=== PATIENT | female | born 1940 | race American Indian/Alaskan Native ===

== ENCOUNTER 2018-01-03 11:38 | Observation (INO) | payer MEDICARE ==
[2018-01-03 12:00] VITALS: BMI 42.9
--- NOTE | 2018-01-03 14:06 | C.PDOC ---
History Of Present Illness 77 y/o female presents to the ED with complaints of bilateral leg pain, ongoing for 11 months, but progressively worsening. Patient has had multiple prior evaluations, including doppler ultrasound on 11/15/17 of the bilateral lower extremities that showed a (+) popliteal DVT on the left, negative on right. States she has been compliant with Xarelto for the past 1 month. Patient states pain has always been equal bilaterally, but is now worsening at the right knee/calf. She also reports intermittent leg asymmetry/swelling, but none at present. Pain is described as "burning" and worsens at night. Otherwise patient denies any chest pain, SOB, ROBBINS, numbness, tingling, or other complaints. She reports she was referred to a vascular specialist who ordered another study, not yet completed due to insurance issues. Additionally, patient is complaining of recurrent boils to the bilateral inner thighs. No new redness, increased swel ling/warmth, or drainage from the area. Time Seen by Provider: 01/03/18 12:58 Chief Complaint (Nursing): Lower Extremity Problem/Injury History Per: Patient History/Exam Limitations: no limitations Onset/Duration Of Symptoms: Days Current Symptoms Are (Timing): Worse Past Medical History Reviewed: Historical Data, Nursing Documentation, Vital Signs Vital Signs: Last Vital Signs Temp 98.3 F 01/03/18 12:00 Pulse 87 01/03/18 12:00 Resp 18 01/03/18 12:00 BP 152/78 H 01/03/18 12:00 Pulse Ox 96 01/03/18 12:00 - Medical History PMH: Arthritis, CAD, COPD, CVA, Diabetes, Diverticulitis (client said had small hole in intestine), Deep Vein Thrombosis (Popliteal left DVT 11/15/17), HTN, Pneumonia, Sleep Apnea Denies: Chronic Kidney Disease Surgical History: Coronary Stent (RCA) - [facility] Procedures EXCIS KNEE SEMILUN CARTL (07/02/02) KNEE SYNOVECTOMY (07/02/02) NAIL REMOVAL (09/26/14) NON-INVASIVE MECHANICAL VENTILATION (10/20/14) PARTIAL OSTECTOMY NEC (09/26/14) Family History: States: Unknown Family Hx - Social History Hx Tobacco Use: No Hx Alcohol Use: No Hx Substance Use: No - Immunization History Hx Tetanus Toxoid Vaccination: No Hx Influenza Vaccination: No Hx Pneumococcal Vaccination: No Review Of Systems Except As Marked, All Systems Reviewed And Found Negative. Constitutional: Negative for: Fever, Chills, Sweats Cardiovascular: Negative for: Chest Pain, Palpitations Respiratory: Negative for: Cough, Shortness of Breath Musculoskeletal: Positive for: Leg Pain (bilateral leg pain, right > left) Skin: Negative for: Rash, Lesions Neurological: Negative for: Weakness, Numbness, Incoordination, Other (tingling) Physical Exam - Physical Exam Appears: Non-toxic, No Acute Distress Skin: Warm, Dry, Other (chronic hyperpigmentation to the bilateral inner thighs, no focal fluctuance, no tenderness or increased warmth/swelling) Head: Atraumatic, Normacephalic Eye(s): bilateral: Normal Inspection, PERRL, EOMI Chest: Symmetrical Cardiovascular: Rhythm Regular, No Murmur Respiratory: Normal Breath Sounds, No Accessory Muscle Use, Other (NARD) Gastrointestinal/Abdominal: Soft, No Tenderness, No Distention Extremity: Bilateral: Atraumatic, Normal Color And Temperature (with no edema, erythema, or cyanosis), Normal ROM, Other (No focal tenderness) Pulses: Left Dorsalis Pedis: Normal, Right Dorsalis Pedis: Normal Neurological/Psych: Oriented x3, Normal Speech ED Course And Treatment O2 Sat by Pulse Oximetry: 96 (RA) Pulse Ox Interpretation: Normal Progress - Re-Evaluation Re-evaluation Note: 01/03/18 15:[address] Rylan Maria, awaiting call back. 01/03/18 15:54 PT NOW REQUESTING ADMISSION FOR DIFF WALKING. PS LIVES W STAIRS, UNABLE TO CLIMB STAIRS W CANE. CONCERN FOR FALLING. ON ANTICOAG FOR DVT. REQUESTING ADMISSION FOR NH, POSSIBLE REHAB PLACEMENT 01/03/18 16:01 D/W PMD AGREES W ADMISSION. WILL FU LABS - Data Reviewed Data Reviewed: Lab, Diagnostic imaging, Old records Medical Decision Making Medical Decision Making: Impression: 77 year old with lower extremity pain Plan: --Tramadol 50 mg PO --Vascular study, right lower extremity --Reassess and disposition Ultrasound is negative for DVT, discussed with patient. Disposition Counseled Patient/Family Regarding: Studies Performed, Diagnosis - Disposition Disposition: HOSPITALIZED Disposition Time: 16:05 Condition: STABLE Forms: [email or web address] (Nigerian) - POA Present On Arrival: Falls Or Trauma, Deep Vein Thrombosis / PE - Clinical Impression Clinical Impression: Coagulopathy, Restless leg syndrome, Chronic pain, Difficulty walking - Scribe Statement The provider has reviewed the documentation as recorded by the Scribe (Alva Corona) Provider Attestation: All medical record entries made by the Scribe were at my direction and personally dictated by me. I have reviewed the chart and agree that the record accurately reflects my personal performance of the history, physical exam, medical decision making, and the department course for this patient. I have also personally directed, reviewed, and agree with the discharge instructions and disposition. Decision To Admit - Pt Status Changed To: Hospital Disposition Of: Observation - . Bed Request Type: Regular Admitting Physician: Rylan Maria Patient Diagnosis: Coagulopathy, Restless leg syndrome, Chronic pain, Difficulty walking
--- NOTE | 2018-01-03 16:01 | VASCLAB ---
Date of service: 01/03/2018 PROCEDURE: Right Lower Extremity Venous Duplex Exam. HISTORY: Leg pain PRIORS: None. TECHNIQUE: Right common femoral, femoral, popliteal and posterior tibial, peroneal and great saphenous veins were evaluated. Flow was assessed with color Doppler, compressibility, assessment of phasic flow and augmentation response. Report prepared by JAN Talley, RVT FINDINGS: RIGHT: 1. Common Femoral Vein: 1.1. Compressibility - Fully compressible: Thrombus - None: Flow - Phasic: Augmentation -Normal: Reflux - None. 2. Femoral Vein: 2.1. Compressibility - Fully compressible: Thrombus - None: Flow - Phasic: Augmentation -Normal: Reflux - None. 3. Popliteal Vein: 3.1. Compressibility - Fully compressible: Thrombus - None: Flow - Phasic: Augmentation -Normal: Reflux - None. 4. Posterior Tibial Vein: 4.1. Compressibility - Fully compressible: Thrombus - None: Flow - Phasic: Augmentation -Normal: Reflux - None. 5. Peroneal Vein: 5.1. Compressibility - Fully compressible: Thrombus - None: Flow - Phasic: Augmentation -Normal: Reflux - None. 6. Great Saphenous Vein: 6.1. Compressibility - Fully compressible: Thrombus -None: Flow - Phasic: Augmentation - Normal: Reflux - None. OTHER FINDINGS: IMPRESSION: No evidence of deep or superficial vein thrombosis of the right lower extremity with excellent venous flow. Normal valve function noted of the right side. Normal venous flow noted in the left common femoral vein.
--- NOTE | 2018-01-03 16:51 | CT ---
Date of service: 01/03/2018 PROCEDURE: CT HEAD WITHOUT CONTRAST. HISTORY: DIFFICULTY WALKING COMPARISON: 07/22/2013 TECHNIQUE: Axial computed tomography images were obtained through the head/brain without intravenous contrast. Radiation dose: Total exam DLP = 986.71 mGy-cm. This CT exam was performed using one or more of the following dose reduction techniques: Automated exposure control, adjustment of the mA and/or kV according to patient size, and/or use of iterative reconstruction technique. FINDINGS: HEMORRHAGE: No intracranial hemorrhage. BRAIN: No mass effect or edema. No significant atrophy. Mild chronic periventricular white matter ischemic change. Small old left basal ganglia lacunar infarct, unchanged. No evidence of acute infarct. VENTRICLES: Unremarkable. No hydrocephalus. CALVARIUM: Unremarkable. PARANASAL SINUSES: Chronic right maxillary sinusitis. MASTOID AIR CELLS: Unremarkable as visualized. No inflammatory changes. OTHER FINDINGS: None. IMPRESSION: No intracranial mass, hemorrhage or evidence of acute infarct. Old left basal ganglia lacunar infarct. Mild chronic periventricular white matter ischemic change. Chronic right maxillary sinusitis.
--- NOTE | 2018-01-03 16:59 | RAD ---
Date of service: 01/03/2018 HISTORY: MED CLEAR COMPARISON: 04/24/2016 TECHNIQUE: Chest PA and lateral FINDINGS: LUNGS: No active pulmonary disease. PLEURA: No significant pleural effusion identified. No pneumothorax apparent. CARDIOVASCULAR: Cardiomegaly. No radiographic findings to suggest acute or significant cardiovascular disease. OSSEOUS STRUCTURES: No significant abnormalities. VISUALIZED UPPER ABDOMEN: Normal. OTHER FINDINGS: Stable elevation left hemidiaphragm. IMPRESSION: No active disease. No significant interval change compared to the prior examination(s).
[2018-01-03 17:03] LABS: BASO # 0.1 K/uL (0.0-0.2); BASO % 1.3 % (0.0-2.0); EOS # 0.2 K/uL (0.0-0.7); EOS % 2.4 % (0.0-4.0); HEMOGLOBIN 10.7 g/dL (11.0-16.0); LYMPH # 2.6 K/uL (1.0-4.3); LYMPH % 38.1 % (20.0-40.0); MEAN CELL VOLUME 89.9 fL (81.0-99.0); MEAN CORPUSCULAR HEMOGLOBIN 29.7 pg (27.0-31.0); MEAN PLATELET VOLUME 9.7 fL (7.2-11.7); MONO # 0.6 K/uL (0.0-0.8); MONO % 8.6 % (0.0-10.0); NEUT # 3.4 K/uL (1.8-7.0); NEUT % 49.6 % (50.0-75.0); NRBC % 0.1 % (0.0-2.0); RBC 3.59 Mil/uL (3.80-5.20); RED CELL DISTRIBUTION WIDTH 13.6 % (11.5-14.5); WHITE BLOOD COUNT 6.9 K/uL (4.8-10.8)
[2018-01-03 17:22] LABS: BLOOD UREA NITROGEN 14 mg/dL (7-17); CALCIUM 9.1 mg/dl (8.6-10.4); GFR NON-AFRICAN AMERICAN > 60
[2018-01-03 19:48] VITALS: RESP 20
[2018-01-04] MEDS ORDERED: Insulin Detemir 100 units/ml Vial (Levemir) SC SCH ×2 (10:00→22:00)
--- NOTE | 2018-01-04 10:42 | RAD ---
Date of service: 01/04/2018 PROCEDURE: Bilateral Knee Radiographs. HISTORY: knee pain COMPARISON: None. FINDINGS: BONES: Right Knee: No fracture appreciated Left Knee: No fracture appreciated JOINTS: Right Knee: Tricompartmental osteoarthrosis Left knee: Tricompartmental osteoarthrosis SOFT TISSUES: Right Knee: Large body habitus Left Knee: Large body habitus JOINT EFFUSION: Right Knee: None. Left Knee: None. OTHER FINDINGS: Subcortical cystic changes bilaterally in each knee joint. 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 No fracture or dislocation. Other findings as above.
[2018-01-04] MEDS ORDERED: Triamcinolone Acetonide 40 mg/mL Inj IAA ONE ×2 (11:47→12:00)
[2018-01-04] MEDS ORDERED: Bupivacaine 0.25% Inj(30mL) IJ ONE ×2 (12:00)
[2018-01-04] MEDS: (Novolog) Insulin Aspart, Recombinant 100 u/ml 10 ml vial SC SCH ×2 (16:27→21:54)
[2018-01-04] MEDS ORDERED: (Novolog) Insulin Aspart, Recombinant 100 u/ml 10 ml vial SC SCH (16:30)
--- NOTE | 2018-01-04 17:55 | CP.PCM.HP ---
History of Present Illness - History of Present Illness History of Present Illness: HPI: 77 y/o femal c/o severe left leg pains few days. h/o left leg DVT. No relief with pain medication. Took Naprosyn , Tramadol, Tylenol. C/o difficulties walking and sleeping. Unable to climb stairs. Review of Systems - Review of Systems All systems: reviewed and no additional remarkable complaints except (severe legs and knee pains, unable to walk , no fever, s/p fall) Past Patient History - Infectious Disease Hx of Infectious Diseases: None - Tetanus Immunizations Tetanus Immunization: >10 years Ago - Past Medical History & Family History Past Medical History?: Yes - Past Social History Smoking Status: Never Smoked - CARDIAC Hx Hypertension: Yes - PULMONARY Hx Chronic Obstructive Pulmonary Disease (COPD): Yes - NEUROLOGICAL Hx Neurological Disorder: Yes HX Cerebrovascular Accident: Yes (2014) - HEENT Hx HEENT Problems: No - RENAL Hx Chronic Kidney Disease: No - ENDOCRINE/METABOLIC Hx Diabetes Mellitus Type 2: Yes - HEMATOLOGICAL/ONCOLOGICAL Hx Blood Disorders: No - INTEGUMENTARY Hx Dermatological Problems: No - MUSCULOSKELETAL/RHEUMATOLOGICAL Hx Arthritis: Yes - GASTROINTESTINAL Hx Diverticulitis: Yes (client said had small hole in intestine) - GENITOURINARY/GYNECOLOGICAL Hx Genitourinary Disorders: No - PSYCHIATRIC Hx Substance Use: No - SURGICAL HISTORY Hx Coronary Stent: Yes (RCA) - ANESTHESIA Hx Anesthesia: Yes Hx Anesthesia Reactions: No Meds Allergies/Adverse Reactions: Allergies Allergy/AdvReac Type Severity Reaction Status Date / Time No Known Allergies Allergy Verified 01/03/18 11:50 Physical Exam - Constitutional Appears: No Acute Distress - Head Exam Head Exam: NORMAL INSPECTION - Eye Exam Eye Exam: Normal appearance - Neck Exam Neck exam: Positive for: Normal Inspection - Respiratory Exam Respiratory Exam: NORMAL BREATHING PATTERN - GI/Abdominal Exam GI & Abdominal Exam: Soft - Rectal Exam Rectal Exam: Deferred - Extremities Exam Extremities exam: Positive for: tenderness - Neurological Exam Neurological exam: Alert Results - Vital Signs Recent Vital Signs: Last Vital Signs Temp 97.6 F 01/04/18 16:00 Pulse 68 01/04/18 16:00 Resp 20 01/04/18 16:00 BP 144/72 01/04/18 17:21 Pulse Ox 98 01/04/18 16:00 - Labs Result Diagrams: 01/03/18 16:58 01/03/18 16:58 Labs: Laboratory Results - last 24 hr 01/03/18 01/04/18 01/04/18 21:29 07:16 11:08 POC Glucose (mg/dL) 175 H 124 H 162 H 01/04/18 16:10 POC Glucose (mg/dL) 150 H Assessment & Plan - Assessment and Plan (Free Text) Assessment: A/P Gait Disoder, Diabetes, Knee arthritis , Morbid Obesity Patient elderly unable to climb stair and walk with out pain. Orhtopedic consult Dr. Gupta. Physical therapy. CT Head , Chest X-ray normal, X-ray knee arthritis, U/s right leg no DVT. Disposition problem. Discuss subacute rehab with patient
[2018-01-04] MEDS: Insulin Detemir 100 units/ml Vial (Levemir) SC SCH (22:16)
--- NOTE | 2018-01-04 23:02 | CON ---
DATE: 01/04/2018 INPATIENT CONSULTATION REASON FOR CONSULTATION: Bilateral knee pain. Consult is as follows. HISTORY OF PRESENT ILLNESS: This is a 77-year-old female who presents with a long history of left knee pain. This has been going on for close to years or so. She said with regards to the right knee, she many years ago had a right knee arthroscopic surgery. The left knee, she states, has not had pain,but she was diagnosed with a DVT in the left lower extremity in 11/2017 and is currently on Xarelto for this. She denies any history of any recent falls, but states that at times she has complaints of some stiffness and states that at time the right lower extremity feels like she wants a buckle on her. PAST MEDICAL HISTORY: Significant for insulin-dependent diabetes, obesity, DVT, and high blood pressure. PHYSICAL EXAMINATION: Consult is as follows. GENERAL: This is a 77-year-old female, in no apparent distress. She is awake, alert, and oriented x 3. Her affect is pleasant and appropriate. EXTREMITIES: Evaluation of the right knee shows no obvious effusion. She has some medial and lateral joint line tenderness to palpation. She is able to essentially fully extend and flex the knee to about 105 to 110 degrees of flexion without difficulty. She is grossly stable with varus and valgus stress. Her thigh and calves are soft and nontender. She has also had some mild peripatellar tenderness to palpation. Grossly, she is neurovascularly intact and moving her ankles and toes without any pain. Evaluation of her left knee again shows no obvious effusion. She has more medial-sided tenderness to palpation. She is able to extend from 0 to 110 degrees. She is grossly stable with varus and valgus stress. Her thigh and calves are soft and nontender. She has 5/5 strength to both knee flexion and extension in the bilateral knees. Grossly, she is neurovascularly intact distally. LABORATORY DATA: She had a recent ultrasound of her leg, which was negative for DVT on the right. She also had x-rays and showed no obvious fractures or dislocation, but some degenerative changes. x-rays of the left knee. IMPRESSION: Bilateral knee arthritis. PLAN: We are going to get some x-rays of her left knee. With regards, we talked about the treatment options including medications, possible steroid injection as well as physical therapy. She does not want any injections for now. For now, we are going to have her do some physical therapy. She is going to be evaluated for possible rehab placement. She currently walks with a cane. I explained to her that a walker may provide more stability for her, and she agrees with this. We will follow up with the x-rays once they are complete. Ronen Murphy MD
--- NOTE | 2018-01-04 23:09 | CARD ---
APPROVED REPORT Date of service: 01/03/2018 EKG Measurement Heart [id number] ND [id number] <Conclusion> Normal sinus rhythm Septal infarct, age undetermined Abnormal ECG
--- NOTE | 2018-01-05 07:56 | CP.PCM.PN ---
Subjective - Date & Time of Evaluation Date of Evaluation: 01/05/18 Time of Evaluation: 07:45 - Subjective Subjective: Pt no complain except pain on right knee/ leg. No cP, no SOB, no edema; Seen c/o Ortho a & advise "injection/ replacement" as per pt. No diarrhea, no n/v,no palpitation Objective - Vital Signs/Intake and Output Vital Signs (last 24 hours): Temp Pulse Resp BP Pulse Ox 97.6 F 74 20 124/72 96 01/05/18 07:39 01/05/18 07:39 01/05/18 07:39 01/05/18 07:39 01/05/18 07:39 Intake and Output: 01/05/18 01/05/18 06:59 18:59 Intake Total 880 Balance 880 - Medications Medications: Current Medications Carvedilol (Coreg) 25 mg PO BID [facility] Last Admin: 01/04/18 17:21 Dose: 25 mg Hydrochlorothiazide (Microzide) 12.5 mg PO DAILY [facility] Last Admin: 01/04/18 10:16 Dose: 12.5 mg Influenza Virus Vaccine (Fluzone Quad [id number]) 60 mcg IM .ONCE ONE Stop: 01/05/18 10:01 Insulin Aspart (Novolog) 0 unit SC [facility]; Protocol Last Admin: 01/04/18 21:54 Dose: Not Given Insulin Detemir (Levemir) 20 unit SC [facility] Last Admin: 01/04/18 22:16 Dose: 20 units Losartan Potassium (Cozaar) 100 mg PO DAILY [facility] Last Admin: 01/04/18 10:16 Dose: 100 mg Metformin HCl (Glucophage Xr) 500 mg PO DAILY [facility] Last Admin: 01/04/18 10:28 Dose: Not Given Pneumococcal Polyvalent Vaccine (Pneumovax 23 Vaccine) 0.5 ml IM .ONCE ONE Stop: 01/05/18 10:01 Rivaroxaban (Xarelto) 20 mg PO DAILY [facility] Last Admin: 01/04/18 10:20 Dose: 20 mg Sitagliptin Phosphate (Januvia) 100 mg PO DAILY [facility] Last Admin: 01/04/18 10:16 Dose: 100 mg Tramadol HCl (Ultram) 50 mg PO TID PRN PRN Reason: Pain, moderate (4-7) Last Admin: 01/05/18 04:08 Dose: 50 mg Tramadol HCl (Ultram) 50 mg PO TID PRN PRN Reason: Pain, severe (8-10) - Labs Labs: 01/03/18 16:58 01/03/18 16:58 - Constitutional Appears: No Acute Distress - Eye Exam Eye Exam: Normal appearance - ENT Exam ENT Exam: Mucous Membranes Moist - Neck Exam Neck Exam: Full ROM. absent: Normal Inspection, Tenderness - Respiratory Exam Respiratory Exam: Clear to Ausculation Bilateral. absent: Rales, Wheezes - Cardiovascular Exam Cardiovascular Exam: REGULAR RHYTHM, +S1, +S2. absent: Gallop, JVD - GI/Abdominal Exam GI & Abdominal Exam: Soft, Normal Bowel Sounds. absent: Tenderness - Extremities Exam Extremities Exam: Full ROM. absent: Calf Tenderness, Joint Swelling, Pedal Edema Assessment and Plan - Assessment and Plan (Free Text) Assessment: Knee pain/ Internal derangemenr HTN, NIDDM, Asthma Refus surgery x yrs; For Subaacut Cont supportive care
[2018-01-05] MEDS: (Novolog) Insulin Aspart, Recombinant 100 u/ml 10 ml vial SC SCH ×4 (08:13→22:33)
[2018-01-05] MEDS ORDERED: Pneumococcal 23-Valent Vaccine IM ONE (10:00)
[2018-01-05] MEDS ORDERED: Influenza Vaccine 60 MCG/0.5 ML SYR (3 yr & up) IM ONE (10:00)
[2018-01-05] MEDS ORDERED: Magnesium Citrate Oral SOL (300 ml) PO ONE ×2 (18:00)
[2018-01-05] MEDS: Insulin Detemir 100 units/ml Vial (Levemir) SC SCH (22:33)
[2018-01-06 01:33] VITALS: O2SAT 95
--- NOTE | 2018-01-06 08:09 | CP.PCM.PN ---
Subjective - Date & Time of Evaluation Date of Evaluation: 01/06/18 Time of Evaluation: 07:57 - Subjective Subjective: P_t had boswel movement after Citrate of magnesia. No CP, no cough, no SOB, no edema. Pain on knee & want rehab Objective - Vital Signs/Intake and Output Vital Signs (last 24 hours): Temp Pulse Resp BP Pulse Ox 98.4 F 77 20 103/71 95 01/06/18 00:00 01/06/18 00:00 01/06/18 00:00 01/06/18 00:00 01/06/18 00:00 Intake and Output: 01/06/18 01/06/18 06:59 18:59 Intake Total 860 Balance 860 - Medications Medications: Current Medications Carvedilol (Coreg) 25 mg PO BID [facility] Last Admin: 01/05/18 17:34 Dose: 25 mg Hydrochlorothiazide (Microzide) 12.5 mg PO DAILY [facility] Last Admin: 01/05/18 10:38 Dose: 12.5 mg Insulin Aspart (Novolog) 0 unit SC [facility]; Protocol Last Admin: 01/05/18 22:33 Dose: Not Given Insulin Detemir (Levemir) 20 unit SC [facility] Last Admin: 01/05/18 22:33 Dose: 20 units Losartan Potassium (Cozaar) 100 mg PO DAILY [facility] Last Admin: 01/05/18 10:39 Dose: 100 mg Metformin HCl (Glucophage Xr) 500 mg PO DAILY [facility] Last Admin: 01/05/18 10:39 Dose: Not Given Polyethylene Glycol (Miralax) 17 gm PO [facility] Rivaroxaban (Xarelto) 20 mg PO DAILY [facility] Last Admin: 01/05/18 10:39 Dose: 20 mg Sitagliptin Phosphate (Januvia) 100 mg PO DAILY [facility] Last Admin: 01/05/18 10:39 Dose: 100 mg Tramadol HCl (Ultram) 50 mg PO TID PRN PRN Reason: Pain, moderate (4-7) Last Admin: 01/05/18 04:08 Dose: 50 mg Tramadol HCl (Ultram) 50 mg PO TID PRN PRN Reason: Pain, severe (8-10) - Labs Labs: 01/03/18 16:58 01/03/18 16:58 - Constitutional Appears: No Acute Distress - Eye Exam Eye Exam: Normal appearance - ENT Exam ENT Exam: Mucous Membranes Moist - Neck Exam Neck Exam: Full ROM. absent: Lymphadenopathy, Normal Inspection, Thyromegaly - Respiratory Exam Respiratory Exam: Clear to Ausculation Bilateral. absent: Rales, Rhonchi, Whe ezes - Cardiovascular Exam Cardiovascular Exam: REGULAR RHYTHM, +S1, +S2. absent: Gallop, JVD - GI/Abdominal Exam GI & Abdominal Exam: Soft. absent: Guarding, Tenderness - Extremities Exam Extremities Exam: Full ROM, Joint Swelling, Normal Capillary Refill, Pedal Edema. absent: Calf Tenderness Assessment and Plan - Assessment and Plan (Free Text) Assessment: Knee pain w/ Gait do\isorder, Morbid obesity, HTN, Asthma, NIDDM Cont meds/ supportive care with PT & for subacute
[2018-01-06] MEDS: (Novolog) Insulin Aspart, Recombinant 100 u/ml 10 ml vial SC SCH ×3 (08:11→16:45)
[2018-01-06 11:15] LABS: BASO % 0.7 % (0.0-2.0); EOS # 0.2 K/uL (0.0-0.7); EOS % 3.3 % (0.0-4.0); HEMOGLOBIN 11.2 g/dL (11.0-16.0); LYMPH # 1.8 K/uL (1.0-4.3); LYMPH % 31.6 % (20.0-40.0); MEAN CELL VOLUME 90.1 fL (81.0-99.0); MEAN CORPUSCULAR HEMOGLOBIN 29.5 pg (27.0-31.0); MEAN CORPUSCULAR HGB CONC 32.8 g/dL (33.0-37.0); MEAN PLATELET VOLUME 9.7 fL (7.2-11.7); MONO # 0.5 K/uL (0.0-0.8); MONO % 8.7 % (0.0-10.0); NEUT # 3.2 K/uL (1.8-7.0); NEUT % 55.7 % (50.0-75.0); RBC 3.8 Mil/uL (3.80-5.20); RED CELL DISTRIBUTION WIDTH 13.4 % (11.5-14.5); WHITE BLOOD COUNT 5.7 K/uL (4.8-10.8)
[2018-01-06 11:52] LABS: ALB/GLOB RATIO 1.1 (1.0-2.1); ALBUMIN 3.6 g/dL (3.5-5.0); ALT/SGPT 14 U/L (9-52); AST/SGOT 12 U/L (14-36); BLOOD UREA NITROGEN 25 mg/dL (7-17); CALCIUM 9.6 mg/dl (8.6-10.4); GFR NON-AFRICAN AMERICAN > 60
--- NOTE | 2018-01-06 15:38 | CP.PCM.PN ---
Subjective - Date & Time of Evaluation Date of Evaluation: 01/06/18 Time of Evaluation: 15:37 Objective - Vital Signs/Intake and Output Vital Signs (last 24 hours): Temp Pulse Resp BP Pulse Ox 97.4 F L 77 20 102/69 95 01/06/18 08:00 01/06/18 08:00 01/06/18 08:00 01/06/18 09:55 01/06/18 08:00 Intake and Output: 01/06/18 01/06/18 06:59 18:59 Intake Total 860 Balance 860 - Medications Medications: Current Medications Carvedilol (Coreg) 25 mg PO BID [facility] Last Admin: 01/06/18 09:55 Dose: 25 mg Hydrochlorothiazide (Microzide) 12.5 mg PO DAILY [facility] Last Admin: 01/06/18 09:57 Dose: 12.5 mg Insulin Aspart (Novolog) 0 unit SC [facility]; Protocol Last Admin: 01/06/18 12:30 Dose: 3 unit Insulin Detemir (Levemir) 20 unit SC [facility] Last Admin: 01/05/18 22:33 Dose: 20 units Losartan Potassium (Cozaar) 100 mg PO DAILY [facility] Last Admin: 01/06/18 09:51 Dose: 100 mg Metformin HCl (Glucophage Xr) 500 mg PO DAILY [facility] Last Admin: 01/06/18 09:55 Dose: Not Given Polyethylene Glycol (Miralax) 17 gm PO [facility] Rivaroxaban (Xarelto) 20 mg PO DAILY [facility] Last Admin: 01/06/18 09:50 Dose: 20 mg Sitagliptin Phosphate (Januvia) 100 mg PO DAILY [facility] Last Admin: 01/06/18 09:54 Dose: 100 mg Tramadol HCl (Ultram) 50 mg PO TID PRN PRN Reason: Pain, moderate (4-7) Last Admin: 01/05/18 04:08 Dose: 50 mg Tramadol HCl (Ultram) 50 mg PO TID PRN PRN Reason: Pain, severe (8-10) - Labs Labs: 01/06/18 11:09 01/06/18 11:09 Assessment and Plan - Assessment and Plan (Free Text) Assessment: PLACE UNDER THE SERVICE OF DR BRAGG AT [facility] ---CALL FOR ADMITTING ORDER [place] MEDICATION ORDER IN THE [facility] REC ACTIVITY TOLERATED AND FACILITY PROTOCOL PHYSICAL THERAPY PER PT RECOMMENDATION CALL DR BRAGG FOR FURTHER ORDER
[2018-01-06 17:06] VITALS: PULSE 71; TEMP 98.1
[2018-01-06 18:03] VITALS: BP 128/78
[2018-01-06] MEDS ORDERED: POLYETHYLENE GLYCOL 3350 17 GM/Dose PACKET PO SCH (22:00)
== END 2018-01-06 19:50 ==
LOC: C.ER 11:38 → C.9E 16:09 → C.3T 18:47
PROVIDERS: ADMIT Internal Medicine; ATTEND Internal Medicine
DX: R26.9 Unspecified abnormalities of gait and mobility (principal); E11.9 Type 2 diabetes mellitus without complications; D68.9 Coagulation defect, unspecified; E66.01 Morbid (severe) obesity due to excess calories; I10 Essential (primary) hypertension; J44.9 Chronic obstructive pulmonary disease, unspecified; Z86.718 Personal history of other venous thrombosis and embolism; Z79.4 Long term (current) use of insulin; Z86.73 Personal history of transient ischemic attack (TIA), and cerebral infarction without residual deficits; M17.0 Bilateral primary osteoarthritis of knee; Z95.5 Presence of coronary angioplasty implant and graft; I25.10 Atherosclerotic heart disease of native coronary artery without angina pectoris
CPT/HCPCS: 36415; 70450; 71046; 73562; 80048; 80053; 82948; 85025; 93005; 93971; 97116; 97162; 97166; 97530; 99284; G0378; G8978; G8979; G8987; G8988

== ENCOUNTER 2018-04-09 11:20 | Outpatient (CLI) | payer MEDICARE | END 2018-04-09 11:21 | disposition home or self-care (01) | LOC: C.LAB 11:20 ==